=== PATIENT | female | born 1995 | race Caucasian/White ===

== ENCOUNTER 2019-12-27 16:50 | Emergency (ER) | payer OTHER, SELFPAY ==
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
[2019-12-27 16:50] VITALS: BP 121/66; PULSE 86; RESP 18; TEMP 37.1; O2SAT 99
[2019-12-27] MEDS: MORPHINE SULFATE (*CRX) 4 MG/ML INJ (17:00)
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
[2019-12-27 19:14] VITALS: BP 118/73; PULSE 78; RESP 16; TEMP 36.7; O2SAT 100
== END 2019-12-27 19:39 | disposition home or self-care (01) ==
PROVIDERS: Emergency Provider Emergency Medicine; PCP Family Medicine
DX: S43.014A Anterior dislocation of right humerus, initial encounter (principal); S00.81XA Abrasion of other part of head, initial encounter; V13.4XXA Pedal cycle driver injured in collision with car, pick-up truck or van in traffic accident, initial encounter; Y93.55 Activity, bike riding
CPT/HCPCS: 23650; 73030; 96374; 99285; J2270

== ENCOUNTER → 2020-01-04 12:15 | Outpatient (CLI) | payer OTHER, SELFPAY ==
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
== END ==
PROVIDERS: PCP Family Medicine; Visit Provider Orthopaedic Surgery
DX: S43.014A Anterior dislocation of right humerus, initial encounter (principal); X58.XXXA Exposure to other specified factors, initial encounter; M25.411 Effusion, right shoulder
CPT/HCPCS: 73221

== ENCOUNTER 2020-01-18 04:04 | Outpatient (CLI) | payer OTHER, SELFPAY ==
[2020-01-18 19:05] LABS: SARS-CoV-2 RNA PCR Negative
== END 2020-01-18 04:05 | disposition home or self-care (01) ==
LOC: ANHCOVIDDT 04:04
PROVIDERS: PCP Family Medicine; Visit Provider Orthopaedic Surgery
DX: Z01.812 Encounter for preprocedural laboratory examination (principal); Z20.828 Contact with and (suspected) exposure to other viral communicable diseases
CPT/HCPCS: 87635; C9803; U0003

== ENCOUNTER 2020-01-20 03:03 | Day surgery (SDC) | payer OTHER, SELFPAY ==
[2020-01-10 08:24] VITALS: BMI 23.1
--- NOTE | 2020-01-19 13:57 | WPDANESEPPF ---
Anes - Initial Pre Proc Eval Procedure: Operation Date: 01/20/20 09:00 Proposed Procedures p Arthroscopic Bankart Repair Right Shoulder - Gordo Johnson MD Date/Time: 01/19/20 13:57 Surgeon: Gordo Johnson MD Pre Op Diagnosis: Traumatic Dislocation Right Shoulder Patient Data Age: 24 Gender: F Height: 1.63 m Weight: 61.24 kg Allergies Allergy/AdvReac Type Severity Reaction Status Date / Time No Known Allergies Allergy Verified 01/20/20 07:32 Home Medications Medication Instructions Recorded Confirmed Type fluticasone 500 mcg-salmeterol 50 1 inhalation INHALATION Q12H 01/02/20 01/20/20 History mcg/dose blistr powdr for inhalation Patient hx anesthesia problems: none Family hx anesthesia problems: none [facility] Past Medical History Medical History (Updated 01/09/20 @ 11:27 by Gordo Johnson MD) Asthma Surgical History Surgical History (Updated 01/02/20 @ 11:27 by Roslyn Sharma) History of surgery on wrist (~12/01/16) Fracture Social History Social History Smoking status: Never smoker Alcohol intake: current Drinks per week: 5 Gender identity (if verbalized by the patient): Female Spiritual care concerns: No Anes - Eval Final PreProcedure Day of Procedure 01/19/20 13:57 Patient weight: normal Heart: regular rate and rhythm Lungs: clear to auscultation and normal air movement Airway: Mallampati scale class II Neurological: alert and oriented Last oral intake: >/= 8 hours ASA classification: II Emergent: no Anesthetic plan: proceed Anesthesia type and monitoring: general LMA and ETT Informed Consent: The patient's anesthetic plan and its attendant risks and benefits were discussed with the patient/family/POA. Questions were solicited and answers provided to the satisfaction of the patient/family/POA.
--- NOTE | 2020-01-19 13:58 | WPDANESPNB ---
Anes - Peripheral Nerve Block Date/Time: 01/19/20 13:58 I have discussed with the patient/family/POA the placement of a peripheral nerve block for post-operative pain management, including associated risks, benefits, complications, and side effects. Alternative methods of post-operative analgesia were detailed. Questions were solicited and answers provided to the satisfaction of the patient/family/POA. Time-Out: A pre-procedural Time-Out was completed immediately before starting the procedure and confirmed: Patient Identification, Site, Procedure, Patient Position and the Availability of Requisite Equipment. Clinical Indications: Acute post-operative pain management requested by the operative surgeon. Nerve Block Insertion Note Anes-nerve block: supraclavicular right Patient position: supine Skin prep: chlorhexidine Needle: 22 gauge, stimulating, insulated echogenic needle. Needle length: 80 mm Technique: ultrasound (in plane) Injectate: bupivacaine 0.5% with epi 5 mcg/ml (20cc) Observations: tolerated well Complications: none Procedure start time:: 1005 Procedure end time:: 1010
[2020-01-20] VITALS (8 sets, daily range): BP systolic 95–126; BP diastolic 54–78; PULSE 70–94; RESP 13–20; TEMP 36.1–36.7; O2SAT 94–100
[2020-01-20] MEDS: LACTATED RINGERS 1,000 ML 30 ML IV CONT ×2 (07:50→14:44)
[2020-01-20] MEDS: ACETAMINOPHEN 500 MG TABLET 1000 MG PO (07:50)
[2020-01-20] MEDS: KETOROLAC 15 MG/ML VIAL (*BKC) IV PUSH (07:55)
--- NOTE | 2020-01-20 10:13 | WPDHPUPDATE1 ---
History and Physical Update Update Date/Time: 01/20/20 10:13 History and Physical has been reviewed, including an updated exam of the patient. There are NO changes in the patient's condition. Risks, benefits, and alternatives have been discussed and questions answered. Patient agrees to proceed with procedure.
[2020-01-20] MEDS: ceFAZolin 2 GM/D5W 50 ML 2 GM/50 ML BAG IVPB (10:19)
[2020-01-20] MEDS: fentaNYL CITRATE INJ (*CRX) 100 MCG/2 ML VIAL 25 MCG IV PUSH (15:17)
[2020-01-20] MEDS: oxyCODONE HCL (*CRX) 5 MG TAB IR PO (16:21)
--- NOTE | 2020-01-21 10:29 | P.OP_ITS ---
Procedure Note - Detailed Date of procedure: 01/20/20 Pre-op diagnosis: Traumatic Dislocation Right Shoulder Post-op diagnosis: other (1. Traumatic anterior shoulder dislocation with bony Bankart lesion and posterior labral tear.) Procedure performed: 1. Arthrscopic repair of anterior bony bankart lesion, and posterior labral tear. Implants: Cline and Nephew suture anchors, suturefix, and one knotless. Anesthesia: GLMA Surgeon: Gordo Johnson MD [employer] Supervisor: Renetta Simon PA-C Estimated blood loss (mL): 20 Complications: No immediate complications Condition: stable Disposition: PACU Findings: Preoperative antibiotics were given. A general anesthetic was administered. The patient was carefully placed in the lateral decubitus position. 12 lb of longitudinal traction was applied. Examination revealed anterior instability. Standard prep and drape was performed. Posterior superior arthroscopic portal was established. An outside in technique was utilized for placement of the anterior superior portal and the anterior inferior portal. An accessory posterior inferior portal was also later created. Inspection revealed the defect at the inferior anterior glenoid. There was some fragmentation of the cartilage and subchondral bone. The superior labrum and biceps were normal. The rotator cuff appeared pristine. The capsule was intact at the humeral insertions. There was significant posterior labral tear with displacement over the glenoid. The bony Bankart was cleared of debris and loosened up carefully, until mobile enough to reduce. The comminuted fragment was attached to labrum and cartilage tissue inferiorly along the fracture line. This was reducible with a small bit of subchondral bone remaining on the most proximal part of this pedicle of tissue. Attention was turned to the posterior labrum which was repaired with 3 suture anchors. The 1st was knotless. All remaining anchors were all suture anchors. These were used to assist in recreating the labral bumper. The bony Bankart was repaired with a technique utilizing a 1.6 mm K-wire to drill 2 holes from across the face of the glenoid into the defect. A 14 gauge spinal needle was used as a drill guide and to keep the location of the drill hole. Then a 1. PDS suture could be shuttled through the drill holes. These were stored anteriorly for later suture shuttling. Two additional anchors were placed at the bony labral margin both distally and proximally. The fragment was reduced very nicely and secured inferiorly 1st. Then the sutures from an anchor at the mid point of the defect, just deep to subchondral bone, were tied in a horizontal mattress on the anterior aspect of the bone. The comminuted strip of tissue that extended along the fracture line to the superior margin of the main fracture line was reduced. There was a small amount of subchondral bone that was sutured down with another suture anchor; thus securing the stripe of tissue. This tissue was felt important to ashley nstitute as it blended into the inferior and anterior labrum. Finally another double loaded anchor was placed just proximally at the 3 o'clock position to reinforce the capsule and labral repair anteriorly. The humeral head appeared very well centered. The bony architecture of the anteroinferior glenoid was nicely reconstituted anatomically. The arthroscopic instruments were removed. The wounds were closed with interrupted 4 0 Monocryl suture followed by Steri- Strips. Sling with a slight abduction pillow in extension was placed. The patient was extubated and brought to the recovery room in stable condition. There were no complications.
== END 2020-01-20 17:02 | disposition home or self-care (01) ==
PROVIDERS: PCP Family Medicine; Visit Provider Orthopaedic Surgery
PROC: (CPT 29805; principal; 2020-01-20 09:00)
DX: S43.014A Anterior dislocation of right humerus, initial encounter (principal); S43.431A Superior glenoid labrum lesion of right shoulder, initial encounter; G89.18 Other acute postprocedural pain; J45.909 Unspecified asthma, uncomplicated; V13.4XXA Pedal cycle driver injured in collision with car, pick-up truck or van in traffic accident, initial encounter
CPT/HCPCS: 29806; 64415; A4565; A9270; J0690; J1100; J1885; J2250; J2405; J2704; J3010; J7120

== ENCOUNTER 2024-02-19 10:50 | Outpatient (CLI) | payer OTHER, SELFPAY ==
[2024-02-19 11:19] LABS: Eosinophils Absolute Auto 0.2 K/mm3 (0-0.3); Eosinophils Percent Auto 1.6 % (0-4.4); Hematocrit 38.9 % (37.0-47.0); Hemoglobin 13.2 g/dL (12.0-15.0); Immature Granulocyte Absolute 0.04 K/mm3 (0.00-0.031); Immature Granulocyte Percent A 0.4 % (0-0.5); Lymphocytes Absolute Auto 2.02 K/mm3 (0.9-3.2); Mean Corpuscular HGB Conc 33.9 g/dl (32-36); Mean Corpuscular Hemoglobin 32.3 pg (26-34); Mean Corpuscular Volume 95.1 fl (80-100); Monocytes Absolute Auto 0.6 K/mm3 (0.1-0.6); Monocytes Percent Auto 5.2 % (2.6-8.5); Neutrophils Absolute Auto 8.4 K/mm3 (1.3-6.7); Neutrophils Percent Auto 74.8 % (45.5-73.1); Platelet Count Result 201 k/mm3 (150-375); Red Blood Count 4.09 M/mm3 (4.2-5.4); Red Cell Distribution Width 12.2 % (11.5-14.5); White Blood Count 11.3 K/mm3 (4.5-10.0)
[2024-02-19 11:37] LABS: Alanine Aminotransferase 13 U/L (6-35); Albumin Level 4.3 g/dL (3.5-5.1); Alkaline Phosphatase 48 U/L (38-126); Anion Gap 6 mmol/L (4-12); Aspartate Amino Transferase 28 U/L (14-36); Bilirubin,Total 1.1 mg/dL (0.2-1.3); Blood Urea Nitrogen 13 mg/dL (7-17); Calcium 9.1 mg/dL (8.4-10.2); Carbon Dioxide 25 mmol/L (22-30); Chloride 106 mmol/L (98-107); Estimated Glomerular Filt Rate > 60; Glucose 93 mg/dL (65-110); Potassium 3.9 mmol/L (3.4-5.0); Sodium 137 mmol/L (137-145)
[2024-02-19 11:38] LABS: Rheumatoid Factor < 12.0 IU/ML (<12)
[2024-02-22 17:12] LABS: ANA Cascade Screen NEGATIVE (NEGATIVE)
== END 2024-02-19 10:51 | disposition home or self-care (01) ==
PROVIDERS: PCP Family Medicine; Visit Provider Physician Assistant Medical
DX: M25.50 Pain in unspecified joint (principal); R21 Rash and other nonspecific skin eruption
CPT/HCPCS: 36415; 80053; 85025; 86038; 86225; 86235; 86364; 86430